=== PATIENT | female | born 1960 | race African-American/Black ===

== ENCOUNTER 2019-08-08 16:35 | Inpatient (IN) ==
[2019-08-08 20:00] LABS: Basophils # 0.1 10*3/uL (0.0-0.2); Basophils % 0.4 % (0.0-0.8); Eosinophils # 0.1 10*3/uL (0.0-0.87); Eosinophils % 0.5 % (0.00-10.9); Hematocrit 18.3 VOL% (35.7-47.0); Immature Granulocytes % 0.9 %; Lymphocytes # 3.4 10*3/uL (1.4-4.0); Lymphocytes % 29.4 % (21.3-54.2); Mean Corpuscular HGB Conc 31.7 GM/DL (32-36); Mean Corpuscular Volume 95.8 FL (87-102); Monocytes % 8.2 % (1.7-12.7); NRBC # 0.02 10*3/uL; Neutrophils % 60.6 % (38.7-73.9); Platelet Count 183 T/CUMM (130-400); Red Blood Count 1.91 MC/CUMM (3.8-5.5); Red Cell Distribution Width 15.3 % (9.3-17.3); White Blood Count 11.4 T/CUMM (4-12)
[2019-08-08] MEDS ORDERED: SODIUM CHLORIDE 0.9% 1,000 ML IV ONE (20:00)
[2019-08-08 20:03] LABS: Hemoglobin 5.8 GM/DL (12.0-16.0)
[2019-08-08] MEDS ORDERED: SODIUM CHLORIDE 0.9% 1,000 ML IV PRN (20:06)
[2019-08-08 20:10] LABS: Alanine Aminotransferase 61 U/L (13-56); Albumin 2.4 G/DL (3.4-5.0); Alkaline Phosphatase 85 U/L (45-117); Aspartate Amino Transferase 79 U/L (0-37); Bilirubin,Total < 0.39 MG/DL (0.2-1.0); Blood Urea Nitrogen 24 MG/DL (7-18); Calcium 7.6 MG/DL (8.5-10.1); Estimated Glom Filtration Rate 61 ML/MIN; Glucose 107 MG/DL (74-106); Osmolality,Calculated 289.8 MOS/KG (273-304); Total Protein 5.1 G/DL (6.4-8.3)
[2019-08-08] MEDS ORDERED: ONDANSETRON 4 MG/2 ML VIAL IV PRN (20:10)
[2019-08-08] MEDS ORDERED: NOREPINEPHRINE 8 MG in SODIUM CHLORIDE 0.9% 242 ML IV PRN (20:11)
[2019-08-08] MEDS ORDERED: POTASSIUM CHLORIDE RIDER 20 MEQ in PREMIX 1 EACH IV PRN (20:18)
[2019-08-08] MEDS ORDERED: PANTOPRAZOLE INJ 80 MG in SODIUM CHLORIDE 0.9% 100 ML IV ONE (20:40)
[2019-08-08] MEDS ORDERED: OCTREOTIDE 100 MCG/ML SYRINGE IV ONE (21:45)
[2019-08-08] MEDS: OCTREOTIDE 500 MCG in SODIUM CHLORIDE 0.9% 100 ML IV SCH (23:25)
[2019-08-08] MEDS: SODIUM CHLORIDE 0.9% 1,000 ML IV SCH (23:44)
[2019-08-09] MEDS: PANTOPRAZOLE INJ 200 MG in SODIUM CHLORIDE 0.9% 250 ML IV SCH (00:22)
[2019-08-09 03:52] LABS: Apearance,Urine CLEAR (Clear); Bilirubin,Urine Negative (Negative); Blood, Urine Negative (Negative); Glucose,Urine (UA) Negative (Negative); Hyaline Casts,Urine 1 /LPF (0-3); Ketones,Urine Negative (Negative); Mucus,Urine Occasional /LPF (Occasional); Nitrite,Urine Negative (Negative); Protein,Urine Negative; RBC,Urine 1 /HPF (0-4); Squamous Epithelial Cell,Urine Occasional /HPF (0-10); Urine Color Yellow (Yellow); Urine Specific Gravity 1.017 (1.001-1.035); Urine Urobilinogen < 2.0 EU/DL (0.2-1.0); WBC,Urine 3 /HPF (0-6)
[2019-08-09] MEDS: SODIUM CHLORIDE 0.9% 1,000 ML IV SCH ×3 (05:55→21:52)
[2019-08-09 08:37] LABS: Calcium 8.1 MG/DL (8.5-10.1); Osmolality,Calculated 295.3 MOS/KG (273-304); PT Patient Result 10.8 SECS (9.6-12.2)
[2019-08-09 08:40] LABS: Basophils # 0.1 10*3/uL (0.0-0.2); Basophils % 0.7 % (0.0-0.8); Eosinophils # 0.2 10*3/uL (0.0-0.87); Eosinophils % 2.1 % (0.00-10.9); Hematocrit 36.6 VOL% (35.7-47.0); Immature Granulocytes % 0.5 %; Immature Granulocytes Absolute 0.05 #; Lymphocytes # 3.5 10*3/uL (1.4-4.0); Lymphocytes % 36.5 % (21.3-54.2); Mean Corpuscular HGB Conc 33.6 GM/DL (32-36); Mean Platelet Volume 11.6 FL (9.6-12.0); Monocytes % 7.7 % (1.7-12.7); Neutrophils % 52.5 % (38.7-73.9); White Blood Count 9.5 T/CUMM (4-12)
[2019-08-09 08:41] LABS: Hemoglobin 12.3 GM/DL (12.0-16.0); Red Blood Count 3.98 MC/CUMM (3.8-5.5)
[2019-08-09 08:42] LABS: Platelet Count 140 T/CUMM (130-400)
[2019-08-09 08:48] LABS: Folate 10.8 NG/ML (5.4-24.0); Vitamin B12 623 PG/ML (211-911)
[2019-08-09 08:57] LABS: % Iron Saturation 25.9 % (18-50); Albumin 2.5 G/DL (3.4-5.0); Bilirubin,Direct 0.15 MG/DL (0.0-0.20); Bilirubin,Indirect 0.9 MG/DL (0.0-1.0); Ferritin 70.4 ng/ml (8-252); Total Protein 5.4 G/DL (6.4-8.3)
[2019-08-09] MEDS: OCTREOTIDE 500 MCG in SODIUM CHLORIDE 0.9% 100 ML IV SCH (09:16)
[2019-08-09 09:27] LABS: Hepatitis B Core IgM Quant 0.11 Index; Hepatitis B Surface Ag Quant 0.31 Index; Hepatitis B Surface Ag Result Negative (Negative); Hepatitis C Virus Ab Quant > 11.00 Index; Hepatitis C Virus Ab Result Positive (Negative)
[2019-08-09 09:45] LABS: Sedimentation Rate-Westergren 1 MM/HR (0-30)
[2019-08-09 14:09] LABS: Hematocrit 35.6 VOL% (35.7-47.0)
[2019-08-09 20:40] LABS: Hematocrit 35.8 VOL% (35.7-47.0); Hemoglobin 11.7 GM/DL (12.0-16.0)
[2019-08-10] MEDS: PANTOPRAZOLE INJ 200 MG in SODIUM CHLORIDE 0.9% 250 ML IV SCH (00:32)
[2019-08-10 02:41] LABS: Hematocrit 35.5 VOL% (35.7-47.0); Hemoglobin 11.6 GM/DL (12.0-16.0)
[2019-08-10] MEDS: SODIUM CHLORIDE 0.9% 1,000 ML IV SCH (06:16)
[2019-08-10] MEDS ORDERED: LIDOCAINE 2% 5 ML VIAL ONE (07:22)
[2019-08-10] MEDS ORDERED: ETOMIDATE 40 MG/20 ML VIAL IV ONE (07:23)
[2019-08-10] MEDS ORDERED: ATROPINE 1 MG/10 ML SYRINGE ONE (08:05)
[2019-08-10] MEDS ORDERED: POTASSIUM CHLORIDE RIDER 100 ML IV ONE (08:30)
[2019-08-10] MEDS ORDERED: PROPOFOL 200 MG/20 ML VIAL IV ONE (08:36)
[2019-08-10] MEDS ORDERED: NIFEdipine 10 MG CAPSULE PO PRN (08:40)
[2019-08-10] MEDS: SODIUM CHLORIDE 0.45% 1,000 ML IV SCH ×2 (08:57→23:00)
[2019-08-10] MEDS: POTASSIUM CHLORIDE RIDER 10 MEQ in PREMIX 1 EACH IV PRN ×2 (08:59→09:58)
[2019-08-10] MEDS ORDERED: PANTOPRAZOLE 40 MG VIAL IV SCH (09:00)
[2019-08-10] MEDS: GABAPENTIN 300 MG CAPSULE PO SCH ×2 (09:25→20:47)
[2019-08-10] MEDS: LISINOPRIL 10 MG TABLET PO SCH (09:25)
[2019-08-10] MEDS: PANTOPRAZOLE 40 MG TABLET PO SCH (20:47)
[2019-08-11 06:01] LABS: Calcium 8.4 MG/DL (8.5-10.1); Osmolality,Calculated 293.1 MOS/KG (273-304)
[2019-08-11] MEDS: PANTOPRAZOLE 40 MG TABLET PO SCH (06:14)
[2019-08-11] MEDS ORDERED: ACETAMINOPHEN 325 MG TABLET PO PRN (06:51)
[2019-08-11] MEDS ORDERED: traMADol 50 MG TABLET PO PRN (06:51)
[2019-08-11 07:12] LABS: Basophils % 0.5 % (0.0-0.8); Eosinophils # 0.2 10*3/uL (0.0-0.87); Eosinophils % 2.3 % (0.00-10.9); Hematocrit 35.1 VOL% (35.7-47.0); Hemoglobin 11.8 GM/DL (12.0-16.0); Immature Granulocytes % 0.5 %; Immature Granulocytes Absolute 0.03 #; Lymphocytes # 1.8 10*3/uL (1.4-4.0); Lymphocytes % 27.7 % (21.3-54.2); Mean Corpuscular HGB Conc 33.6 GM/DL (32-36); Mean Corpuscular Volume 91.2 FL (87-102); Mean Platelet Volume 11.8 FL (9.6-12.0); Monocytes % 9.9 % (1.7-12.7); Neutrophils % 59.1 % (38.7-73.9); Platelet Count 158 T/CUMM (130-400); Red Blood Count 3.85 MC/CUMM (3.8-5.5); Red Cell Distribution Width 15.8 % (9.3-17.3); White Blood Count 6.6 T/CUMM (4-12)
[2019-08-11] MEDS: GABAPENTIN 300 MG CAPSULE PO SCH (10:04)
[2019-08-11] MEDS: LISINOPRIL 10 MG TABLET PO SCH (10:04)
[2019-08-11 10:10] LABS: Hemoglobin A1 (Alkaline) 97.2 % (96.5-98.5); Hemoglobin A2 (Alkaline) 2.8 % (1.5-3.5)
[2019-08-11 11:43] VITALS: BP 148/87
[2019-08-11] MEDS: SODIUM CHLORIDE 0.45% 1,000 ML IV SCH (15:20)
== END 2019-08-11 15:16 | disposition home or self-care (01) | DRG 378 ==
LOC: N.5E → SUATTDRO 20:01 → N.CC 21:55 → N.2E 08-10 11:44
PROVIDERS: ADMIT Internal Medicine; ATTEND Internal Medicine